=== PATIENT | female | born 1960 | race Caucasian/White ===

== ENCOUNTER 2018-03-03 06:51 | Inpatient (IN) | payer OTHER ==
[~2018-03-03] VITALS: Ht 167.6 cm; Wt 64.9 kg
[2018-03-03] VITALS (30 sets, daily range): BP systolic 86–144; BP diastolic 59–86
[2018-03-03] MEDS: IPRATROPIUM BROMIDE (0.02%) 0.5MG/2.5ML NEB HHN SCH (00:10)
[2018-03-03] MEDS ORDERED: METHYLPREDNISOLONE SOD SUCC 125 MG/2 ML VIAL IV STA (07:08)
[2018-03-03] MEDS ORDERED: IPRATROPIUM/ALBUTEROL 0.5-3(2.5)MG/3ML NEB HHN ONE (07:15)
[2018-03-03] MEDS ORDERED: PROPOFOL 10MG/ML 100ML 100 ML IV ONE ×2 (07:15→12:00)
[2018-03-03] MEDS ORDERED: MAGNESIUM 2 G PREMIX 50 ML IV ONE (07:15)
[2018-03-03] MEDS ORDERED: ETOMIDATE 2MG/ML 10ML VIAL IV ONE ×3 (07:15→15:13)
[2018-03-03] MEDS ORDERED: LEVETIRACETAM 500MG PREMIX 100 ML IV ONE (07:15)
[2018-03-03] MEDS ORDERED: VECURONIUM BROMIDE 10 MG/VIAL IV ONE ×2 (07:15→15:13)
[2018-03-03 07:33] LABS: CHLORIDE 103 mEq/L (98-107)
[2018-03-03 07:35] LABS: PARTIAL THROMBOPLASTIN TIME 24.7 sec (23.4-31.0); PROTHROMBIN TIME 10.2 sec (9.1-11.1)
[2018-03-03 07:36] LABS: BASOPHILS % 0.5 % (0.0-2.0); EOSINOPHILS % 0.2 % (0.0-5.0); HEMATOCRIT. 46.8 % (36.0-48.0); HEMOGLOBIN. 16.1 g/dL (12.0-16.0); LYMPHOCYTES % 23.1 % (20.0-50.0); MEAN CORPUSCULAR HEMOGLOBIN 31.6 pg (28.0-32.0); MEAN CORPUSCULAR VOLUME 91.6 fL (81.0-99.0); MEAN PLATELET VOLUME 9.2 fl (7.4-10.4); MONOCYTES % 5.6 % (2.0-8.0); NEUTROPHILS % 70.6 % (40.0-76.0); PLATELET 184 x1000/uL (130-400); RED BLOOD CELL COUNT 5.11 mill/uL (4.2-5.4)
[2018-03-03 07:37] LABS: ETHANOL BLOOD < 10 mg/dL
[2018-03-03 07:41] LABS: CREATINE KINASE 33 IU/L (26-192)
[2018-03-03 07:50] LABS: CARBAMAZEPINE < 0.5 ug/mL (4-12); PHENOBARBITAL < 2.1 ug/mL (15.0-40.0); VALPROIC ACID < 3.0 ug/mL (50-100)
[2018-03-03] MEDS ORDERED: LORAZEPAM 2MG/ML CPJ IV ONE (08:00)
[2018-03-03] MEDS ORDERED: LORAZEPAM 2MG/ML CPJ ONE (08:00)
[2018-03-03 08:17] LABS: BG BASE EXCESS -2.6 mmol/L (-2.0-2.0); BG CARBOXYHEMOGLOBIN 0.3 % (0.5-1.5); BG DEOXYHEMOGLOBIN 0.5 % (0.0-5.0); BG FRACTION INSPIRED OXYGEN 60; BG HCO3 ACT 25.6 mmol/L (22.0-26.0); BG METHEMOGLOBIN 0.2 % (0.0-1.5); BG OXYGEN SATURATION 99.5 % (92.0-98.5); BG PCO2 57.9 mmHg (35.0-45.0); BG PH 7.264 (7.350-7.450); BG PO2 305.3 mmHg (75.0-100.0); BG SAMPLE SITE RIGHT BRACHIAL; BG TIDAL VOLUME(mL) 500 mL; BG TOTAL HEMOGLOBIN 15.9 g/dL (12.0-18.0); BG VENT MODE VENT - A/C; BG VENT RATE 14 set
[2018-03-03] MEDS ORDERED: KCL 20MEQ/100ML PREMIX 100 ML IV ONE ×2 (09:45→10:00)
[2018-03-03 10:12] LABS: CLARITY URINE CLEAR (CLEAR); COLOR URINE YELLOW (YELLOW); KETONES URINE NEGATIVE (NEGATIVE); LEUKOCYTE ESTERASE URINE NEGATIVE (NEGATIVE); NITRITE URINE NEGATIVE (NEGATIVE); OCCULT BLOOD URINE 1+ (NEGATIVE); PROTEIN URINE 3+ (NEGATIVE); UROBILINOGEN URINE 0.2 E.U./dL (0.2-1.0)
[2018-03-03 10:26] LABS: CANNABINOID URINE SCREEN NEGATIVE (NEGATIVE); OPIATES URINE SCREEN NEGATIVE (NEGATIVE); PHENCYCLIDINE URINE SCREEN NEGATIVE (NEGATIVE)
[2018-03-03 10:27] LABS: *AMPHETAMINES SCREEN URINE NEGATIVE (NEGATIVE); *BARBITURATES SCREEN URINE NEGATIVE (NEGATIVE); *BENZODIAZEPINES SCREEN URINE NEGATIVE (NEGATIVE); *COCAINE SCREEN URINE NEGATIVE (NEGATIVE); METHADONE URINE SCREEN NEGATIVE (NEGATIVE)
[2018-03-03] MEDS ORDERED: LIDOCAINE HCL 1% 20ML VIAL (Pyxis) INJ ONE (10:49)
[2018-03-03] MEDS ORDERED: ATROPINE SULFATE 1MG/10ML SYR ONE (13:36)
[2018-03-03 14:02] LABS: BG BASE EXCESS 1.8 mmol/L (-2.0-2.0); BG DEOXYHEMOGLOBIN 0.8 % (0.0-5.0); BG FRACTION INSPIRED OXYGEN 40; BG HCO3 ACT 26.6 mmol/L (22.0-26.0); BG METHEMOGLOBIN 0.3 % (0.0-1.5); BG OXYGEN SATURATION 99.2 % (92.0-98.5); BG OXYHEMOGLOBIN 97.9 % (94.0-97.0); BG PCO2 42.3 mmHg (35.0-45.0); BG PH 7.417 (7.350-7.450); BG PO2 184.9 mmHg (75.0-100.0); BG SAMPLE SITE LEFT RADIAL; BG TIDAL VOLUME(mL) 500 mL; BG TOTAL HEMOGLOBIN 15.1 g/dL (12.0-18.0); BG VENT MODE VENT - A/C; BG VENT RATE 14 set
[2018-03-03] MEDS ORDERED: SUCCINYLCHOLINE CHLORIDE 200MG/10ML IV ONE (14:32)
[2018-03-03] MEDS ORDERED: SODIUM CHLORIDE 0.9% 10ML VIAL ONE (15:13)
[2018-03-03] MEDS ORDERED: PHENYLEPHRINE 40 MG in DEXT 5% WATER 246 ML IV PRN ×4 (17:00)
[2018-03-03] MEDS ORDERED: SODIUM CHLORIDE 0.9% 500 ML IV NR (17:15)
[2018-03-03] MEDS: LORATADINE 10MG TABLET PO SCH (17:21)
[2018-03-03] MEDS: METHYLPREDNISOLONE SOD SUCC 125 MG/2 ML VIAL IV SCH (17:21)
[2018-03-03] MEDS: MONTELUKAST SODIUM 10MG TABLET PO SCH (17:21)
[2018-03-03] MEDS: FAMOTIDINE 20MG/2ML VIAL IV SCH (17:21)
[2018-03-03] MEDS: ACETAMINOPHEN 650MG/20.3ML UDC PO PRN (17:22)
[2018-03-03] MEDS: DEXT 5%/0.45% NACL 1000ML 1,000 ML IV SCH (17:23)
[2018-03-03] MEDS: IPRATROPIUM/ALBUTEROL 0.5-3(2.5)MG/3ML NEB HHN PRN ×2 (17:26→21:42)
[2018-03-03] MEDS ORDERED: LEVOFLOXACIN 500MG PREMIX 100 ML IV SCH (18:00)
[2018-03-03] MEDS: PROPOFOL 10MG/ML 100ML 100 ML IV PRN ×2 (18:37→22:17)
[2018-03-03] MEDS: LEVOFLOXACIN 500MG PREMIX 100 ML IV SCH (19:59)
[2018-03-04] VITALS (62 sets, daily range): BP systolic 51–127; BP diastolic 22–94
[2018-03-04] MEDS: PROPOFOL 10MG/ML 100ML 100 ML IV PRN ×5 (03:30→20:30)
[2018-03-04] MEDS: METHYLPREDNISOLONE SOD SUCC 125 MG/2 ML VIAL IV SCH ×4 (06:19→17:39)
[2018-03-04] MEDS: DEXT 5%/0.45% NACL 1000ML 1,000 ML IV SCH ×2 (06:20→20:32)
[2018-03-04 07:55] LABS: BG BASE EXCESS -0.4 mmol/L (-2.0-2.0); BG CARBOXYHEMOGLOBIN 0.3 % (0.5-1.5); BG DEOXYHEMOGLOBIN 1.5 % (0.0-5.0); BG HCO3 ACT 26.3 mmol/L (22.0-26.0); BG METHEMOGLOBIN 0.2 % (0.0-1.5); BG OXYGEN SATURATION 98.5 % (92.0-98.5); BG PCO2 50.4 mmHg (35.0-45.0); BG PH 7.335 (7.350-7.450); BG PO2 129.6 mmHg (75.0-100.0); BG SAMPLE SITE RIGHT RADIAL; BG TIDAL VOLUME(mL) 500 mL; BG TOTAL HEMOGLOBIN 15.3 g/dL (12.0-18.0); BG VENT MODE VENT - A/C; BG VENT RATE 14 set
[2018-03-04] MEDS: IPRATROPIUM BROMIDE (0.02%) 0.5MG/2.5ML NEB HHN SCH ×4 (08:20→20:43)
[2018-03-04] MEDS: LORATADINE 10MG TABLET PO SCH (08:37)
[2018-03-04] MEDS: FAMOTIDINE 20MG/2ML VIAL IV SCH (08:38)
[2018-03-04] MEDS ORDERED: LIDOCAINE HCL/PF 1% 2ML VIAL ONE (13:35)
[2018-03-04 17:09] LABS: HEMATOCRIT. 44.4 % (36.0-48.0); HEMOGLOBIN. 15.2 g/dL (12.0-16.0); MEAN CORPUSCULAR HEMOGLOBIN 31.5 pg (28.0-32.0); MEAN CORPUSCULAR VOLUME 92.4 fL (81.0-99.0); MEAN PLATELET VOLUME 9.4 fl (7.4-10.4); PLATELET 181 x1000/uL (130-400); RED BLOOD CELL COUNT 4.81 mill/uL (4.2-5.4); RED CELL DISTRIBUTION WIDTH 13.3 % (11.6-14.6)
[2018-03-04] MEDS: MONTELUKAST SODIUM 10MG TABLET PO SCH (17:39)
[2018-03-04 17:41] LABS: CHLORIDE 107 mEq/L (98-107)
[2018-03-04 18:26] LABS: PLATELET ESTIMATE NORMAL
[2018-03-04] MEDS: LEVOFLOXACIN 500MG PREMIX 100 ML IV SCH (20:27)
[2018-03-04] MEDS: ACETAMINOPHEN 650MG/20.3ML UDC PO PRN (20:30)
[2018-03-05] VITALS (88 sets, daily range): BP systolic 65–152; BP diastolic 32–108
[2018-03-05] MEDS: IPRATROPIUM BROMIDE (0.02%) 0.5MG/2.5ML NEB HHN SCH ×5 (00:22→20:17)
[2018-03-05] MEDS: PROPOFOL 10MG/ML 100ML 100 ML IV PRN ×2 (04:30→08:54)
[2018-03-05] MEDS: ACETAMINOPHEN 650MG/20.3ML UDC PO PRN (04:48)
[2018-03-05] MEDS: METHYLPREDNISOLONE SOD SUCC 125 MG/2 ML VIAL IV SCH ×4 (04:49→23:52)
[2018-03-05 05:30] LABS: BASOPHILS % 0.3 % (0.0-2.0); EOSINOPHILS % 0.1 % (0.0-5.0); HEMATOCRIT. 43.4 % (36.0-48.0); HEMOGLOBIN. 14.8 g/dL (12.0-16.0); LYMPHOCYTES % 21.1 % (20.0-50.0); MEAN CORPUSCULAR HEMOGLOBIN 31.4 pg (28.0-32.0); MEAN PLATELET VOLUME 9.5 fl (7.4-10.4); MONOCYTES % 9.1 % (2.0-8.0); NEUTROPHILS % 69.4 % (40.0-76.0); PLATELET 170 x1000/uL (130-400); RED BLOOD CELL COUNT 4.71 mill/uL (4.2-5.4)
[2018-03-05 05:41] LABS: CHLORIDE 107 mEq/L (98-107)
[2018-03-05 07:51] LABS: BG BASE EXCESS -0.6 mmol/L (-2.0-2.0); BG CARBOXYHEMOGLOBIN 0.2 % (0.5-1.5); BG FRACTION INSPIRED OXYGEN 100; BG HCO3 ACT 23.5 mmol/L (22.0-26.0); BG METHEMOGLOBIN 0.1 % (0.0-1.5); BG OXYHEMOGLOBIN 98.7 % (94.0-97.0); BG PCO2 36.4 mmHg (35.0-45.0); BG PH 7.428 (7.350-7.450); BG PO2 125.8 mmHg (75.0-100.0); BG SAMPLE SITE RIGHT RADIAL; BG TIDAL VOLUME(mL) 450 mL; BG TOTAL HEMOGLOBIN 9.9 g/dL (12.0-18.0); BG VENT MODE VENT - A/C; BG VENT RATE 12 set
[2018-03-05] MEDS: DEXT 5%/0.45% NACL 1000ML 1,000 ML IV SCH ×2 (09:12→23:07)
[2018-03-05] MEDS: LORATADINE 10MG TABLET PO SCH (09:12)
[2018-03-05] MEDS: FAMOTIDINE 20MG/2ML VIAL IV SCH (09:12)
[2018-03-05] MEDS: IPRATROPIUM/ALBUTEROL 0.5-3(2.5)MG/3ML NEB HHN PRN ×2 (10:14→12:16)
[2018-03-05] MEDS ORDERED: POTASSIUM CHLORIDE 20MEQ TABLET SR PO NR (11:15)
[2018-03-05] MEDS: FENTANYL CITRATE/PF 500 MCG in SODIUM CHLORIDE 0.9% 40 ML IV PRN ×2 (13:19→19:35)
[2018-03-05] MEDS: MONTELUKAST SODIUM 10MG TABLET PO SCH (17:47)
[2018-03-05] MEDS: LEVOFLOXACIN 500MG PREMIX 100 ML IV SCH (19:49)
[2018-03-05] MEDS: LEVETIRACETAM 500MG TABLET PO SCH (20:55)
[2018-03-05] MEDS: PHENYTOIN SODIUM EXTENDED 100MG CAPSULE PO SCH (21:19)
[2018-03-06] VITALS (44 sets, daily range): BP systolic 93–130; BP diastolic 49–83
[2018-03-06] MEDS: IPRATROPIUM BROMIDE (0.02%) 0.5MG/2.5ML NEB HHN SCH ×6 (00:35→20:14)
[2018-03-06] MEDS: PHENYTOIN SODIUM EXTENDED 100MG CAPSULE PO SCH ×3 (05:14→22:02)
[2018-03-06] MEDS: METHYLPREDNISOLONE SOD SUCC 125 MG/2 ML VIAL IV SCH ×2 (05:14→11:41)
[2018-03-06 05:35] LABS: BASOPHILS % 0.1 % (0.0-2.0); HEMATOCRIT. 39.4 % (36.0-48.0); HEMOGLOBIN. 13.4 g/dL (12.0-16.0); LYMPHOCYTES % 8.2 % (20.0-50.0); MEAN CORPUSCULAR HEMOGLOBIN 31.6 pg (28.0-32.0); MEAN CORPUSCULAR VOLUME 92.5 fL (81.0-99.0); MEAN PLATELET VOLUME 9.6 fl (7.4-10.4); MONOCYTES % 4.6 % (2.0-8.0); NEUTROPHILS % 87.1 % (40.0-76.0); PLATELET 145 x1000/uL (130-400); RED BLOOD CELL COUNT 4.26 mill/uL (4.2-5.4); RED CELL DISTRIBUTION WIDTH 13.1 % (11.6-14.6)
[2018-03-06 05:45] LABS: CHLORIDE 103 mEq/L (98-107)
[2018-03-06] MEDS: FENTANYL CITRATE/PF 500 MCG in SODIUM CHLORIDE 0.9% 40 ML IV PRN (06:13)
[2018-03-06] MEDS: FAMOTIDINE 20MG/2ML VIAL IV SCH (08:30)
[2018-03-06] MEDS: LEVETIRACETAM 500MG TABLET PO SCH ×2 (08:30→20:40)
[2018-03-06] MEDS: LORATADINE 10MG TABLET PO SCH (08:30)
[2018-03-06] MEDS: DEXT 5%/0.45% NACL 1000ML 1,000 ML IV SCH (11:42)
[2018-03-06] MEDS: METHYLPREDNISOLONE SOD SUCC 40 MG/ML VIAL IV SCH ×2 (12:00→20:40)
[2018-03-06 13:12] LABS: BG BASE EXCESS -0.6 mmol/L (-2.0-2.0); BG CARBOXYHEMOGLOBIN 0.2 % (0.5-1.5); BG FRACTION INSPIRED OXYGEN 40; BG HCO3 ACT 23.1 mmol/L (22.0-26.0); BG METHEMOGLOBIN 0.3 % (0.0-1.5); BG OXYHEMOGLOBIN 98.5 % (94.0-97.0); BG PCO2 34.9 mmHg (35.0-45.0); BG PH 7.438 (7.350-7.450); BG PO2 164.3 mmHg (75.0-100.0); BG PRESSURE SUPPORT 8; BG SAMPLE SITE RIGHT BRACHIAL; BG TOTAL HEMOGLOBIN 13.9 g/dL (12.0-18.0); BG VENT MODE VENT - CPAP
[2018-03-06] MEDS: ACETAMINOPHEN 650MG/20.3ML UDC PO PRN (16:03)
[2018-03-06] MEDS: MONTELUKAST SODIUM 10MG TABLET PO SCH (17:40)
[2018-03-06] MEDS: LEVOFLOXACIN 500MG PREMIX 100 ML IV SCH (20:40)
[2018-03-07] VITALS (35 sets, daily range): BP systolic 80–127; BP diastolic 28–77
[2018-03-07] MEDS: IPRATROPIUM BROMIDE (0.02%) 0.5MG/2.5ML NEB HHN SCH ×6 (00:22→20:26)
[2018-03-07] MEDS: DEXT 5%/0.45% NACL 1000ML 1,000 ML IV SCH (02:24)
[2018-03-07] MEDS: METHYLPREDNISOLONE SOD SUCC 40 MG/ML VIAL IV SCH ×3 (03:14→20:22)
[2018-03-07] MEDS: FAMOTIDINE 20MG/2ML VIAL IV SCH ×2 (03:15→20:22)
[2018-03-07] MEDS ORDERED: DIPHENHYDRAMINE 50MG/ML VIAL IV PRN (04:00)
[2018-03-07] MEDS: RACEPINEPHRINE 2.25% 0.5ML NEB VIAL HHN SCH ×3 (04:10→12:05)
[2018-03-07 06:05] LABS: BASOPHILS % 0.2 % (0.0-2.0); EOSINOPHILS % 0.1 % (0.0-5.0); HEMATOCRIT. 38.6 % (36.0-48.0); HEMOGLOBIN. 13.5 g/dL (12.0-16.0); LYMPHOCYTES % 18.3 % (20.0-50.0); MEAN CORPUSCULAR HEMOGLOBIN 32.3 pg (28.0-32.0); MEAN CORPUSCULAR VOLUME 92.5 fL (81.0-99.0); MEAN PLATELET VOLUME 10.1 fl (7.4-10.4); MONOCYTES % 8.1 % (2.0-8.0); NEUTROPHILS % 73.3 % (40.0-76.0); PLATELET 162 x1000/uL (130-400); RED BLOOD CELL COUNT 4.17 mill/uL (4.2-5.4); RED CELL DISTRIBUTION WIDTH 12.7 % (11.6-14.6)
[2018-03-07] MEDS: PHENYTOIN SODIUM EXTENDED 100MG CAPSULE PO SCH ×2 (06:19→13:19)
[2018-03-07 07:21] LABS: CHLORIDE 107 mEq/L (98-107)
[2018-03-07] MEDS: LORATADINE 10MG TABLET PO SCH (08:18)
[2018-03-07] MEDS: LEVETIRACETAM 500MG TABLET PO SCH ×2 (08:18→20:22)
[2018-03-07] MEDS ORDERED: PHENYTOIN SODIUM EXTENDED 100MG CAPSULE PO SCH (09:00)
[2018-03-07] MEDS ORDERED: LEVE1000 PO (13:16)
[2018-03-07] MEDS ORDERED: PHEN100C4 PO (13:16)
[2018-03-07] MEDS ORDERED: BENZONATATE 100MG CAPSULE PO PRN (13:30)
[2018-03-07] MEDS: MONTELUKAST SODIUM 10MG TABLET PO SCH (16:30)
[2018-03-07] MEDS ORDERED: PHENYTOIN 100 MG/4 ML UDC PO NR (17:00)
[2018-03-07] MEDS: LEVOFLOXACIN 500MG PREMIX 100 ML IV SCH (20:22)
[2018-03-08] VITALS (12 sets, daily range): BP systolic 92–117; BP diastolic 47–77
[2018-03-08] MEDS: IPRATROPIUM BROMIDE (0.02%) 0.5MG/2.5ML NEB HHN SCH ×6 (00:58→21:47)
[2018-03-08] MEDS: METHYLPREDNISOLONE SOD SUCC 40 MG/ML VIAL IV SCH ×2 (04:17→12:12)
[2018-03-08 06:02] LABS: BASOPHILS % 0.4 % (0.0-2.0); EOSINOPHILS % 0.1 % (0.0-5.0); HEMATOCRIT. 37.4 % (36.0-48.0); HEMOGLOBIN. 12.8 g/dL (12.0-16.0); LYMPHOCYTES % 32.8 % (20.0-50.0); MEAN CORPUSCULAR HEMOGLOBIN 31.9 pg (28.0-32.0); MEAN CORPUSCULAR VOLUME 92.8 fL (81.0-99.0); MEAN PLATELET VOLUME 9.9 fl (7.4-10.4); NEUTROPHILS % 59.7 % (40.0-76.0); PLATELET 155 x1000/uL (130-400); RED BLOOD CELL COUNT 4.03 mill/uL (4.2-5.4); RED CELL DISTRIBUTION WIDTH 12.7 % (11.6-14.6)
[2018-03-08 06:51] LABS: CHLORIDE 102 mEq/L (98-107)
[2018-03-08] MEDS: LEVETIRACETAM 500MG TABLET PO SCH ×2 (09:41→20:40)
[2018-03-08] MEDS: LORATADINE 10MG TABLET PO SCH (09:41)
[2018-03-08] MEDS: FAMOTIDINE 20MG/2ML VIAL IV SCH ×2 (09:42→20:41)
[2018-03-08] MEDS: PHENYTOIN SODIUM EXTENDED 100MG CAPSULE PO SCH ×2 (09:48→20:40)
[2018-03-08] MEDS ORDERED: PHENYTOIN SODIUM EXTENDED 100MG CAPSULE PO NR (14:45)
[2018-03-08] MEDS: MONTELUKAST SODIUM 10MG TABLET PO SCH (17:48)
[2018-03-08] MEDS: LEVOFLOXACIN 500MG PREMIX 100 ML IV SCH (20:41)
[2018-03-09] VITALS (9 sets, daily range): BP systolic 91–106; BP diastolic 52–70
[2018-03-09] MEDS: IPRATROPIUM BROMIDE (0.02%) 0.5MG/2.5ML NEB HHN SCH ×3 (06:38→12:15)
[2018-03-09 07:43] LABS: BASOPHILS % 0.1 % (0.0-2.0); EOSINOPHILS % 0.4 % (0.0-5.0); HEMATOCRIT. 35.9 % (36.0-48.0); HEMOGLOBIN. 12.7 g/dL (12.0-16.0); LYMPHOCYTES % 38.5 % (20.0-50.0); MEAN CORPUSCULAR HEMOGLOBIN 32.4 pg (28.0-32.0); MEAN CORPUSCULAR VOLUME 91.9 fL (81.0-99.0); MEAN PLATELET VOLUME 9.4 fl (7.4-10.4); MONOCYTES % 6.9 % (2.0-8.0); NEUTROPHILS % 54.1 % (40.0-76.0); PLATELET 157 x1000/uL (130-400); RED BLOOD CELL COUNT 3.91 mill/uL (4.2-5.4); RED CELL DISTRIBUTION WIDTH 12.9 % (11.6-14.6)
[2018-03-09 08:40] LABS: CHLORIDE 104 mEq/L (98-107)
[2018-03-09] MEDS ORDERED: PREDNISONE 20MG TABLET PO SCH (09:00)
[2018-03-09] MEDS: PHENYTOIN SODIUM EXTENDED 100MG CAPSULE PO SCH (09:17)
[2018-03-09] MEDS: LORATADINE 10MG TABLET PO SCH (09:18)
[2018-03-09] MEDS: FAMOTIDINE 20MG/2ML VIAL IV SCH (09:18)
[2018-03-09] MEDS: LEVETIRACETAM 500MG TABLET PO SCH (09:18)
[2018-03-09] MEDS ORDERED: FAMO-135 MT (10:43)
[2018-03-09] MEDS ORDERED: MONT10TA21 PO (10:43)
[2018-03-09] MEDS ORDERED: ALBU6.7H INH (10:43)
[2018-03-09] MEDS ORDERED: CLAR10 PO (10:43)
[2018-03-09] MEDS ORDERED: P20 MT (10:43)
[2018-03-09] MEDS ORDERED: KEPP500 PO (10:43)
== END 2018-03-09 15:05 | disposition home or self-care (01) | DRG 208 ==
LOC: ER 06:51 → EDBEDREQ 13:51 → MICUSO 14:43 → ENRESERV 14:43 → 5EST 03-07 21:19
PROVIDERS: ADMIT Internal Medicine; ATTEND Internal Medicine
PROC: 5A1945Z Respiratory Ventilation, 24-96 Consecutive Hours (ICD-10-PCS; principal; 2018-03-03)
PROC: 0BH17EZ Insertion of Endotracheal Airway into Trachea, Via Natural or Artificial Opening (ICD-10-PCS; 2018-03-03)
PROC: 02HV33Z Insertion of Infusion Device into Superior Vena Cava, Percutaneous Approach (ICD-10-PCS; 2018-03-03)
PROC: B548ZZA Ultrasonography of Superior Vena Cava, Guidance (ICD-10-PCS; 2018-03-03)
DX: J96.01 Acute respiratory failure with hypoxia (principal); J69.0 Pneumonitis due to inhalation of food and vomit; J45.901 Unspecified asthma with (acute) exacerbation; G93.40 Encephalopathy, unspecified; E87.2 Acidosis; G93.1 Anoxic brain damage, not elsewhere classified; G40.909 Epilepsy, unspecified, not intractable, without status epilepticus; E87.6 Hypokalemia; E78.1 Pure hyperglyceridemia; T38.0X5A Adverse effect of glucocorticoids and synthetic analogues, initial encounter; D72.829 Elevated white blood cell count, unspecified; Z78.1 Physical restraint status; Z90.710 Acquired absence of both cervix and uterus; Y92.89 Other specified places as the place of occurrence of the external cause
CPT/HCPCS: 31500; 36415; 36569; 36600; 71045; 76937; 80048; 80156; 80165; 80184; 80185; 80305; 82375; 82542; 82550; 82805; 83036; 83880; 84478; 84484; 87070; 87804; 92610; 93005; 93970; 94002; 94003; 94640; 96365; 96375; 97116; 97162; 97166; 97530; 99285; A4216; C1725; C1769; G0482; J0330; J0461; J1200; J1953; J1956; J2060; J2370; J2704; J2920; J2930; J3010; J3475; J3480; J3490; J7040; J7050; J7060; J7512; J7620